=== PATIENT | female | born 1970 | race Caucasian/White ===

== ENCOUNTER → 2018-08-25 18:17 | Day surgery (SDC) | payer OTHER ==
[~2018-08-25 18:17] MED LIST: CRESTOR20 MG; TENORMIN50 MG PO
== END | disposition home or self-care (01) ==
LOC: ADM 08-23 08:15 → CIR.AMB 08:15
DX: S53.31XA Traumatic rupture of right ulnar collateral ligament, initial encounter (principal); S56.511A Strain of other extensor muscle, fascia and tendon at forearm level, right arm, initial encounter

== ENCOUNTER 2019-08-24 07:08 | Day surgery (SDC) | payer OTHER ==
[~2019-08-24 07:08] MED LIST changes: +TOPROL XL25 M1 PO; +ZETIA10 MG PO
== END 2019-08-24 11:40 | disposition home or self-care (01) ==
LOC: CIR.AMB 07:08 → ADM 11:30 → CIR.AMB 11:30
DX: M77.12 Lateral epicondylitis, left elbow (principal); M65.822 Other synovitis and tenosynovitis, left upper arm